=== PATIENT | male | born 1945 | race Caucasian/White ===

== ENCOUNTER 2018-06-10 01:26 | Outpatient (CLI) | payer MEDICARE, OTHER, SELFPAY ==
[2018-06-13 09:15] LABS: PSA, Diagnostic 1.9 ng/ml (0-6.5)
== END 2018-06-10 01:46 ==
PROVIDERS: PCP Emergency Medicine; Visit Provider Urology
DX: N40.2 Nodular prostate without lower urinary tract symptoms (principal); R97.20 Elevated prostate specific antigen [PSA]
CPT/HCPCS: 36415; 84153

== ENCOUNTER → 2018-06-20 09:18 | Outpatient (BNVA) | payer MEDICARE, OTHER, SELFPAY | PROVIDERS: PCP Emergency Medicine; Visit Provider Urology | DX: N40.2 Nodular prostate without lower urinary tract symptoms (principal); R97.20 Elevated prostate specific antigen [PSA] | CPT/HCPCS: 99213 ==

== ENCOUNTER 2018-12-02 11:48 | Emergency (ER) | payer MEDICARE, OTHER, SELFPAY ==
[2018-12-02 11:52] VITALS: BP 171/86; PULSE 64; RESP 16; TEMP 36.8; O2SAT 98
--- NOTE | 2018-12-02 12:24 | ED.GENADUL_ITS ---
Discharge Plan Disposition Patient Disposition: HOME Condition: Good Discharge Details Chief Complaint: RashLesion Clinical Impression: Insect bite Primary Care Provider: José Nance ED Provider: Paulo Villagran Home Meds and New Rx's Prescriptions: Continued ibuprofen 200 MG tablet 200 mg PO DAILY PRNRF: 0 ranitidine HCl 15 MG/1 ML syrup 150 mg PO daily prn RF: 0 lorazepam [Ativan] 1 MG tablet 1 mg PO HS PRNQty: 90 RF: 1 Discharge Instructions Instructions: Insect Bite or Sting (ED), Tick Bite (ED) Additional Instructions: Continue to watch area and return for any new or significant worsening of symptoms otherwise follow-up with your primary care provider for reassessment as needed. It is recommended that you use DEET or other insect repellent to reduce potential for disease transmission from insects Referrals: José Nance, DO [Primary Care Provider] - (As needed for reassessment) Medical Decision Making 3 days ago patient suffered bug bite to right upper thigh, has continued to be red, pruritic, and erythematous. Patient denies any change in symptoms or other symptoms such as arthralgias, fever chills or other rash. Patient states that he is outside a lot and suffers from many tick bites and insect bites but never noted a attached tick to that area and performs nightly tick checks and removes all of them in less than 24 hours as noted. Physical exam shows a quarter size erythematous area to right upper thigh with mild induration, no streaking, no diffuse erythema. Exam is otherwise unremarkable. Review of vital signs shows hypertension but otherwise no fever, no tachycardia. Highly probable that this is a hypersensitivity reaction to insect bite but tick bite is a potential. 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 Otherwise patient to observe symptoms and return for new or worsening symptoms otherwise follow-up with primary care as needed per HPI General Date/Time Provider Initiated Documentation: 12/02/18 11:55 . Related Data Home Medications Medication Instructions Recorded Confirmed ibuprofen 200 mg PO DAILY PRN 01/17/16 12/02/18 ranitidine HCl 150 mg PO daily prn ml 07/17/16 12/02/18 lorazepam [Ativan] 1 mg PO HS PRN #90 tab 12/02/18 12/02/18 Previous Rx's Medication Instructions Recorded lorazepam [Ativan] 1 mg PO HS PRN #90 tab 12/02/18 Allergies Allergy/AdvReac Type Severity Reaction Status Date / Time shellfish derived Allergy Severe lip Verified 12/02/18 11:56 swelling levetiracetam [From Keppra] Allergy Intermediate hives Verified 12/02/18 11:56 Penicillins Allergy Intermediate Skin Rash Unverified 12/02/18 11:56 phenytoin sodium Allergy Mild drug rash Verified 12/02/18 11:56 [From Dilantin] phenytoin sodium extended Allergy Mild drug rash Verified 12/02/18 11:56 [From Dilantin] divalproex sodium AdvReac Verified 12/02/18 11:56 [From Depakote] General Stated Complaint: RashLesion HUNG: 4 PFS Surgical History (Updated 10/27/18 @ 12:57 by Robin Phillips) BIOPSY, PROSTATE Colonoscopy - MAC Repair of inguinal hernia (09/29/16) Spinal Fusion (~1980) Family History FAMILY HISTORY Personal history of malignant neoplasm Mother Personal history of malignant neoplasm Depression Stroke Father Personal history of malignant neoplasm Heart disease Sister Depression Grandfather No problems noted. Grandfather Personal history of malignant neoplasm Heart disease Social History Smoking/Tobacco Use Status: Never Alcohol Intake: current Alcohol Intake frequency: 0-2 drinks per day Drug use: Never Substance use type: does not use Do you feel safe at home: Yes Do you feel safe in your relationship?: Yes Course Vital Signs Temperature 36.8 C 12/02/18 11:52 Pulse 64 12/02/18 11:52 Respiratory Rate 16 12/02/18 11:52 Blood Pressure 171/86 H 12/02/18 11:52 Pulse Oximetry 98 12/02/18 11:52 Temperature 36.8 C 12/02/18 11:52 Temperature Source Skin 12/02/18 11:52 Pulse 64 12/02/18 11:52 Respiratory Rate 16 12/02/18 11:52 Respiratory Effort Non-Labored 12/02/18 11:55 Blood Pressure 171/86 H 12/02/18 11:52 Blood Pressure Position Sitting 12/02/18 11:52 Pulse Oximetry 98 12/02/18 11:52 Oxygen Delivery Method Room Air 12/02/18 11:52 Oxygen Flow Rate 0 12/02/18 11:52
[2018-12-02] MEDS: Doxycycline Hyclate 100 MG CAP 200 MG PO (12:30)
== END 2018-12-02 12:33 | disposition home or self-care (01) ==
PROVIDERS: Emergency Provider Nurse Practitioner Family; PCP Emergency Medicine
DX: S70.361A Insect bite (nonvenomous), right thigh, initial encounter (principal); W57.XXXA Bitten or stung by nonvenomous insect and other nonvenomous arthropods, initial encounter
CPT/HCPCS: 99283

== ENCOUNTER 2019-03-17 15:15 | Outpatient (CLI) | payer MEDICARE, OTHER, SELFPAY | END 2019-03-17 15:35 | PROVIDERS: PCP Emergency Medicine; Visit Provider Urology | DX: R97.20 Elevated prostate specific antigen [PSA] (principal) | CPT/HCPCS: 36415; 84153 ==

== ENCOUNTER → 2019-06-20 10:00 | Outpatient (BNVA) | payer MEDICARE, OTHER, SELFPAY | PROVIDERS: PCP Emergency Medicine; Referring Provider Emergency Medicine; Visit Provider Urology | DX: N40.2 Nodular prostate without lower urinary tract symptoms (principal); R97.20 Elevated prostate specific antigen [PSA] | CPT/HCPCS: 99213 ==

== ENCOUNTER 2019-12-19 02:15 | Outpatient (CLI) | payer MEDICARE, OTHER, SELFPAY ==
[2019-12-19 18:28] LABS: PSA, Diagnostic 3.9 ng/mL (0.0-6.5)
== END 2019-12-19 02:35 ==
PROVIDERS: PCP Emergency Medicine; Visit Provider Urology
DX: N40.2 Nodular prostate without lower urinary tract symptoms (principal); R97.20 Elevated prostate specific antigen [PSA]
CPT/HCPCS: 36415; 84153

== ENCOUNTER → 2019-12-29 11:27 | Outpatient (BNVA) | payer MEDICARE, OTHER, SELFPAY | PROVIDERS: PCP Emergency Medicine; Referring Provider Emergency Medicine; Visit Provider Urology | DX: N40.2 Nodular prostate without lower urinary tract symptoms (principal); R97.20 Elevated prostate specific antigen [PSA]; Z80.42 Family history of malignant neoplasm of prostate | CPT/HCPCS: 99213 ==

== ENCOUNTER 2020-10-08 03:11 | Outpatient (CLI) | payer MEDICARE, OTHER, SELFPAY ==
[2020-10-08 17:09] LABS: PSA, Diagnostic 3.9 ng/mL (0.0-6.5)
[2020-10-08 20:37] LABS: HGB 15.8 g/dL (13.5-17.5); MCH 31.4 pg (27.0-33.0); MCHC 34.3 % (32.0-36.0); MCV 91.5 fL (80-95); MPV 10.5 fL (8.0-11.0); Platelet Count 215 10^3/uL (130-400); RBC 5.03 10^6/uL (4.36-5.78); RDW-SD 43.3 fL; WBC 6.31 10^3/uL (4.4-10.8)
[2020-10-08 21:11] LABS: ALT 23 U/L (16-63); AST 26 U/L (15-37); Alkaline Phosphatase 86 U/L (46-116); Anion Gap 7.5 mmol/L (3-11); BUN 17 mg/dL (7-18); Bilirubin, Total 0.5 mg/dL (0.2-1.0); CO2 29.5 mmol/L (21.0-32.0); Calcium 9.2 mg/dL (8.5-10.1); Chloride 105 mmol/L (98-107); Glucose 92 mg/dL (74-106); Potassium 4.8 mmol/L (3.5-5.1); Sodium 142 mmol/L (136-145); Total Protein 6.7 g/dL (6.4-8.2)
[2020-10-08 21:15] LABS: C-Reactive Protein < 0.05 mg/dL (0.0-0.3)
== END 2020-10-08 03:12 | disposition home or self-care (01) ==
PROVIDERS: PCP Emergency Medicine; Visit Provider Urology
DX: R53.83 Other fatigue (principal); R97.20 Elevated prostate specific antigen [PSA]
CPT/HCPCS: 36415; 80053; 85027; 84153; 86140

== ENCOUNTER → 2020-10-15 09:30 | Outpatient (BNVA) | payer MEDICARE, OTHER, SELFPAY | PROVIDERS: PCP Emergency Medicine; Referring Provider Emergency Medicine; Visit Provider Nurse Practitioner Gerontology | DX: N40.2 Nodular prostate without lower urinary tract symptoms (principal); R97.20 Elevated prostate specific antigen [PSA] | CPT/HCPCS: 99214 ==

== ENCOUNTER 2021-11-17 03:24 | Outpatient (CLI) | payer MEDICARE, OTHER, SELFPAY ==
[2021-11-17 18:31] LABS: PSA, Diagnostic 4.1 ng/mL (<=6.5)
== END 2021-11-17 03:25 | disposition home or self-care (01) ==
LOC: LBO 03:24
PROVIDERS: PCP Family Medicine; Visit Provider Nurse Practitioner Gerontology
DX: N40.2 Nodular prostate without lower urinary tract symptoms (principal); R97.20 Elevated prostate specific antigen [PSA]
CPT/HCPCS: 36415; 84153

== ENCOUNTER → 2021-11-25 12:59 | Outpatient (BNVA) | payer MEDICARE, OTHER, SELFPAY | PROVIDERS: PCP Family Medicine; Referring Provider Emergency Medicine; Visit Provider Nurse Practitioner Gerontology | DX: N40.2 Nodular prostate without lower urinary tract symptoms (principal); R97.20 Elevated prostate specific antigen [PSA]; Z80.42 Family history of malignant neoplasm of prostate | CPT/HCPCS: 99214 ==

== ENCOUNTER 2022-11-18 02:35 | Outpatient (CLI) | payer MEDICARE, SELFPAY ==
[2022-11-18 18:49] LABS: PSA, Diagnostic 2.7 ng/mL (<=6.5)
== END 2022-11-18 02:36 | disposition home or self-care (01) ==
LOC: LBO 02:35
PROVIDERS: PCP Family Medicine; Visit Provider Nurse Practitioner Gerontology
DX: N40.2 Nodular prostate without lower urinary tract symptoms (principal); R97.20 Elevated prostate specific antigen [PSA]; Z80.42 Family history of malignant neoplasm of prostate
CPT/HCPCS: 36415; 84153

== ENCOUNTER → 2023-01-28 09:23 | Outpatient (BNVA) | payer MEDICARE, SELFPAY | PROVIDERS: PCP Family Medicine; Visit Provider Nurse Practitioner Gerontology | DX: N40.2 Nodular prostate without lower urinary tract symptoms (principal); Z80.42 Family history of malignant neoplasm of prostate; R97.20 Elevated prostate specific antigen [PSA] | CPT/HCPCS: 99213 ==

== ENCOUNTER 2024-01-19 03:31 | Outpatient (CLI) | payer MEDICARE, SELFPAY ==
[2024-01-20 15:49] LABS: PSA, Diagnostic 5.1 ng/mL (<=6.5)
== END 2024-01-19 03:32 | disposition home or self-care (01) ==
LOC: LBO 03:31
PROVIDERS: PCP Family Medicine; Visit Provider Nurse Practitioner Gerontology
DX: N40.2 Nodular prostate without lower urinary tract symptoms (principal); Z80.42 Family history of malignant neoplasm of prostate; R97.20 Elevated prostate specific antigen [PSA]
CPT/HCPCS: 36415; 84153

== ENCOUNTER → 2024-01-27 09:50 | Outpatient (BNVA) | payer MEDICARE, SELFPAY | PROVIDERS: PCP Family Medicine; Visit Provider Nurse Practitioner Gerontology | DX: L98.9 Disorder of the skin and subcutaneous tissue, unspecified (principal); N40.2 Nodular prostate without lower urinary tract symptoms; R97.20 Elevated prostate specific antigen [PSA] | CPT/HCPCS: 99214 ==

== ENCOUNTER 2024-06-01 04:51 | Outpatient (CLI) | payer MEDICARE, SELFPAY ==
[2024-06-01 15:35] LABS: Estimated GFR 76.56 (mL/min/1.73m2)
[2024-06-02 09:23] LABS: Hepatitis C Ab w Rflx HCV PCR Negative (Negative)
== END 2024-06-01 04:52 | disposition home or self-care (01) ==
PROVIDERS: PCP Family Medicine; Visit Provider Psychiatry & Neurology Neurology
DX: Z11.59 Encounter for screening for other viral diseases (principal); G40.209 Localization-related (focal) (partial) symptomatic epilepsy and epileptic syndromes with complex partial seizures, not intractable, without status epilepticus; D32.9 Benign neoplasm of meninges, unspecified
CPT/HCPCS: 36415; 86803; 82565

== ENCOUNTER 2024-11-20 01:08 | Outpatient (CLI) | payer MEDICARE, SELFPAY ==
--- NOTE | 2024-11-20 07:45 | DI.RAD_ITS ---
Exam(s) XR ANKLE RT COMPLETE EXAM: XR ANKLE RT COMPLETE CLINICAL HISTORY: lateral right foot and ankle pain,M79.671. TECHNIQUE: 2D digital imaging was performed. Three views. COMPARISON: CR XR FOOT RT COMPLETE from 11/20/2024 FINDINGS: BONES: No acute fracture is present. No bony destructive lesion is seen. Dorsal spur at the distal talus. JOINTS: The ankle mortise is normally aligned. No significant joint space narrowing. SOFT TISSUE: Normal. IMPRESSION: No acute abnormality. DATA REPOSITORY: RADIATION DOSE DELIVERED:
--- NOTE | 2024-11-20 07:45 | DI.RAD_ITS ---
Exam(s) XR FOOT RT COMPLETE EXAM: XR FOOT RT COMPLETE CLINICAL HISTORY: lateral right foot and ankle pain,M79.671. TECHNIQUE: 2D digital imaging was performed. Three views. COMPARISON: CR RIGHT ANKLE COMPLETE from 10/12/2017 FINDINGS: BONES: No acute fracture is present. No bony destructive lesion is seen. Small dorsal spur at the distal talus. JOINTS: No dislocation present. There are severe degenerative changes of the 1st MTP joint. No significant hallux valgus. Degenerative changes are also noted at the sesamoid 1st metatarsal head. Remaining MTP joints are maintained. SOFT TISSUE: Normal. 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 DATA REPOSITORY: RADIATION DOSE DELIVERED:
== END 2024-11-20 01:28 ==
LOC: DI 01:08
PROVIDERS: PCP Family Medicine; Visit Provider Physician Assistant
DX: M79.671 Pain in right foot (principal)
CPT/HCPCS: 73610; 73630

== ENCOUNTER → 2024-11-27 09:43 | Outpatient (BNVA) | payer MEDICARE, SELFPAY | PROVIDERS: PCP Family Medicine; Referring Provider Family Medicine; Visit Provider Podiatrist | DX: S93.401A Sprain of unspecified ligament of right ankle, initial encounter (principal); M79.671 Pain in right foot; R60.0 Localized edema; X58.XXXA Exposure to other specified factors, initial encounter | CPT/HCPCS: 99213; 29580; 29850 ==

== ENCOUNTER → 2024-12-18 15:09 | Outpatient (BNVA) | payer MEDICARE, SELFPAY | PROVIDERS: PCP Family Medicine; Referring Provider Family Medicine; Visit Provider Podiatrist | DX: S93.401D Sprain of unspecified ligament of right ankle, subsequent encounter (principal); R60.0 Localized edema; M79.671 Pain in right foot; I87.2 Venous insufficiency (chronic) (peripheral); X58.XXXD Exposure to other specified factors, subsequent encounter | CPT/HCPCS: 99213 ==

== ENCOUNTER 2025-02-07 01:53 | Outpatient (CLI) | payer MEDICARE, SELFPAY ==
[2025-02-07 17:53] LABS: PSA, Diagnostic 4.4 ng/mL (<=6.5)
== END 2025-02-07 01:54 | disposition home or self-care (01) ==
LOC: LBO 01:53
PROVIDERS: PCP Family Medicine; Visit Provider Nurse Practitioner Gerontology
DX: N40.2 Nodular prostate without lower urinary tract symptoms (principal)
CPT/HCPCS: 36415; 84153

== ENCOUNTER → 2025-02-14 14:26 | Outpatient (BNVA) | payer MEDICARE, SELFPAY | PROVIDERS: PCP Family Medicine; Visit Provider Nurse Practitioner Gerontology | DX: N40.2 Nodular prostate without lower urinary tract symptoms (principal); R97.20 Elevated prostate specific antigen [PSA]; Z80.42 Family history of malignant neoplasm of prostate; L98.9 Disorder of the skin and subcutaneous tissue, unspecified | CPT/HCPCS: 99213 ==

== ENCOUNTER → 2025-02-19 13:54 | Outpatient (BNVA) | payer MEDICARE, SELFPAY | PROVIDERS: PCP Family Medicine; Referring Provider Family Medicine; Visit Provider Podiatrist | DX: M20.41 Other hammer toe(s) (acquired), right foot (principal); B35.1 Tinea unguium; L60.3 Nail dystrophy; S93.401D Sprain of unspecified ligament of right ankle, subsequent encounter; X58.XXXD Exposure to other specified factors, subsequent encounter; I87.2 Venous insufficiency (chronic) (peripheral); R60.0 Localized edema; M79.671 Pain in right foot | CPT/HCPCS: 99214 ==

== ENCOUNTER 2025-03-22 00:08 | Outpatient (CLI) | payer MEDICARE, SELFPAY ==
[2025-03-22 15:21] LABS: ALT 18 U/L (16-63); AST 20 U/L (15-37); Albumin 3.5 g/dL (3.4-5.0); Alkaline Phosphatase 90 U/L (46-116); Anion Gap 7.7 mmol/L (3-11); BUN 15 mg/dL (7-18); Bilirubin, Total 0.6 mg/dL (0.2-1.0); CO2 30.3 mmol/L (21.0-32.0); Calcium 9.2 mg/dL (8.5-10.1); Chloride 103 mmol/L (98-107); Estimated GFR 76.08 (mL/min/1.73m2); Glucose 73 mg/dL (74-106); Potassium 4.1 mmol/L (3.5-5.1); Sodium 141 mmol/L (136-145); Total Protein 6.9 g/dL (6.4-8.2); Vitamin B12 215 pg/mL (193-986)
== END 2025-03-22 00:09 | disposition home or self-care (01) ==
LOC: LOS 00:08
PROVIDERS: PCP Family Medicine; Visit Provider Family Medicine
DX: K21.9 Gastro-esophageal reflux disease without esophagitis (principal); I10 Essential (primary) hypertension
CPT/HCPCS: 36415; 80053; 82607